=== PATIENT | male | born 1960 | race Two or more races ===

== ENCOUNTER 2023-01-28 09:34 | Emergency (ER) | payer MEDICAID ==
[~2023-01-28] VITALS: Ht 182.9 cm; Wt 96.7 kg
[2023-01-28 10:52] VITALS: BP 140/92; PULSE 82; RESP 18; TEMP 97.6; O2SAT 95
[2023-01-28] MEDS ORDERED: TRIAMCINOLONE 40MG/ML 1ML VIAL IX ONE (12:15)
== END 2023-01-28 13:08 | disposition home or self-care (01) ==
LOC: ER 09:34
DX: M65.351 Trigger finger, right little finger (principal)
CPT/HCPCS: 20550; 99284; J3301